=== PATIENT | female | born 1970 | race Caucasian/White ===

== ENCOUNTER 2016-07-23 14:03 | Emergency (ER) | payer OTHER ==
[2016-07-23] MEDS ORDERED: CYCLOBENZAPRINE 10 MG TAB ONE (15:01)
[2016-07-23] MEDS ORDERED: KETOROLAC 60 MG/2 ML VIAL IM ONE (15:02)
== END 2016-07-23 15:50 | disposition home or self-care (01) ==
LOC: ER 14:03
DX: S39.012A Strain of muscle, fascia and tendon of lower back, initial encounter (principal); G89.29 Other chronic pain; M51.36 Other intervertebral disc degeneration, lumbar region; M54.41 Lumbago with sciatica, right side; Z87.891 Personal history of nicotine dependence; Z79.899 Other long term (current) drug therapy
CPT/HCPCS: 72100; 96372